=== PATIENT | female | born 1995 | race Hispanic/Latino ===

== ENCOUNTER 2020-09-09 15:36 | Emergency (ER) | payer SELFPAY | END 2020-09-09 16:43 | disposition left against medical advice (07) | LOC: ED 15:36 | DX: R10.9 Unspecified abdominal pain (principal); Z53.21 Procedure and treatment not carried out due to patient leaving prior to being seen by health care provider ==

== ENCOUNTER 2020-09-10 09:14 | Observation (INO) | payer OTHER ==
[2020-09-10 03:10] LABS: Basophils # (Auto) 0.1 K/mm3 (0.0-0.1); Basophils % (Auto) 0.4 % (0.0-1.8); Eosinophils % (Auto) 0.1 % (0.0-4.3); Hematocrit 36.5 % (30.3-42.9); Hemoglobin 12.3 gm/dl (10.1-14.3); Lymphocytes # (Auto) 1.6 K/mm3 (1.2-5.4); Lymphocytes % (Auto) 8.3 % (13.4-35.0); Mean Corpuscular HGB Conc 34 % (30-34); Mean Corpuscular Volume 84 fl (79-97); Monocytes # (Auto) 1.5 K/mm3 (0.0-0.8); Monocytes % (Auto) 7.9 % (0.0-7.3); Platelet Count 248 K/mm3 (140-440); Red Blood Count 4.34 M/mm3 (3.65-5.03); Red Cell Distribution Width 14.1 % (13.2-15.2)
[2020-09-10 03:17] LABS: Bilirubin,Urine NEG (Negative); Blood,Urine NEG (Negative); Color,Urine Yellow (Yellow); Mucus,Urine 2+ /HPF; Urobilinogen,Urine < 2.0 mg/dL (<2.0)
--- NOTE | 2020-09-10 03:23 | Emergency Department Report ---
ED General Adult HPI - General Chief complaint: Abdominal Pain Stated complaint: ABD PAIN/CRAMPING PUI?: No Time Seen by Provider: 09/10/20 03:09 Source: patient, RN notes reviewed Mode of arrival: Ambulatory Limitations: Physical Limitation - History of Present Illness Initial comments: The patient was evaluated in the emergency department for symptoms described in the history of present illness. He/she was evaluated in the context of the global COVID-19 pandemic, which necessitated consideration that the patient might be at risk for infection with the virus that causes COVID-19. Institutional protocols and algorithms that pertain to the evaluation of patients at risk for COVID-19 are in a state of rapid change based on information released by regulatory bodies including the CDC and federal and state organizations. These policies and algorithms were followed during the patient's care in the emergency department. Please note that these policies, procedures and recommendations changed on a rapid basis. During the history and physical examination, I am chaperoned by Andria Villalba Patient is a 25-year-old female. She is not known to myself previously. 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 She denies chronic medical conditions. She presents to the ER today with complaint of diffuse sharp throbbing cramping abdominal pain, present for the past day to day and a half. It is all over, and only decreases when she leans forward. When she straightens out and lays flat, it increases her pain. She also complains of bilateral trapezius and posterior thorax pain. She denies headache, midline neck pain, chest pain, exertional shortness of breath, vomiting, she does endorse dysuria. No loss of taste or smell. No history of STDs. She is never had pain like this before. No history of ovarian cyst that she is aware of. -: Gradual, hour(s), days(s) Location: back, abdomen Radiation: non-radiation Quality: stabbing, aching, sharp Consistency: constant Improves with: rest, other Worsens with: movement - Related Data Allergies Allergy/AdvReac Type Severity Reaction Status Date / Time No Known Allergies Allergy Verified 09/10/20 04:43 ED Review of Systems ROS: Stated complaint: ABD PAIN/CRAMPING Other details as noted in HPI Constitutional: denies: fever, weakness Eyes: denies: eye discharge ENT: denies: epistaxis Respiratory: denies: cough Cardiovascular: denies: chest pain Gastrointestinal: abdominal pain Genitourinary: dysuria Musculoskeletal: back pain, myalgia Neurological: denies: weakness Psychiatric: anxiety Hematological/Lymphatic: denies: easy bleeding ED Past Medical Hx - Past Medical History Previous Medical History?: Yes Hx Kidney Stones: Yes - Surgical History Past Surgical History?: No - Social History Smoking Status: Never Smoker Substance Use Type: None ED Physical Exam - General Limitations: Physical Limitation General appearance: alert, anxious, in distress - Head Head exam: Present: atraumatic, normocephalic - Eye Eye exam: Present: normal appearance, EOMI. Absent: nystagmus - ENT ENT exam: Present: normal exam, normal orophraynx, mucous membranes moist, normal external ear exam - Neck Neck exam: Present: normal inspection, full ROM. Absent: tenderness, m eningismus - Respiratory Respiratory exam: Present: normal lung sounds bilaterally. Absent: respiratory distress, rales, rhonchi, stridor, decreased breath sounds - Cardiovascular Cardiovascular Exam: Present: normal rhythm, tachycardia. Absent: systolic murmur, diastolic murmur, rubs, gallop - GI/Abdominal GI/Abdominal exam: Present: tenderness, guarding, rebound. Absent: distended, pulsatile mass - Extremities Exam Extremities exam: Present: normal inspection, full ROM, other (2+ pulses noted in the bilateral upper and lower extremities. There is no palpable cord. negative Homans sign. Muscular compartments are soft. The pelvis is stable.). Absent: pedal edema, calf tenderness - Back Exam Back exam: Present: normal inspection, full ROM. Absent: tenderness, CVA tenderness (R), CVA tenderness (L), paraspinal tenderness, vertebral tenderness - Neurological Exam Neurological exam: Present: alert, other (No facial droop. Tongue midline. Extraocular movements intact bilaterally. Facial sensation intact to light touch in V1, V2, V3 distribution bilaterally. 5 and a 5 strength in 4 extremities. Sensation intact to light touch in 4 extremities.). Absent: motor sensory deficit - Psychiatric Psychiatric exam: Present: anxious - Skin Skin exam: Present: warm, dry, intact, normal color. Absent: rash ED Course Vital Signs 09/10/20 02:33 Temperature 98.2 F Pulse Rate 100 H Respiratory 16 Rate Blood Pressure 123/95 O2 Sat by Pulse 98 Oximetry - Reevaluation(s) Reevaluation #1: 09/10/20 05:21 Patient states that she feels improved. Resting comfortably. Awaiting gynecologic consultation at this time. ED Medical Decision Making - Lab Data Result diagrams: 09/10/20 02:53 09/10/20 02:53 Vital Signs 09/10/20 02:33 Temperature 98.2 F Pulse Rate 100 H Respiratory 16 Rate Blood Pressure 123/95 O2 Sat by Pulse 98 Oximetry Lab Results 09/10/20 09/10/20 09/10/20 Range/Units 02:52 02:53 02:53 WBC 18.8 H (4.5-11.0) K/mm3 RBC 4.34 (3.65-5.03) M/mm3 Hgb 12.3 (10.1-14.3) gm/dl Hct 36.5 (30.3-42.9) % MCV 84 (79-97) fl MCH 28 (28-32) pg MCHC 34 (30-34) % RDW 14.1 (13.2-15.2) % Plt Count 248 (140-440) K/mm3 Lymph % (Auto) 8.3 L (13.4-35.0) % [place] % (Auto) 7.9 H (0.0-7.3) % Eos % (Auto) 0.1 (0.0-4.3) % Baso % (Auto) 0.4 (0.0-1.8) % Lymph # (Auto) 1.6 (1.2-5.4) K/mm3 [place] # (Auto) 1.5 H (0.0-0.8) K/mm3 Eos # (Auto) 0.0 (0.0-0.4) K/mm3 Baso # (Auto) 0.1 (0.0-0.1) K/mm3 Seg Neutrophils % 83.3 H (40.0-70.0) % Seg Neutrophils # 15.7 H (1.8-7.7) K/mm3 Sodium 137 (137-145) mmol/L Potassium 4.2 (3.6-5.0) mmol/L Chloride 101.7 (98-107) mmol/L Carbon Dioxide 22 (22-30) mmol/L Anion Gap 18 mmol/L BUN 9 (7-17) mg/dL Creatinine 0.9 (0.6-1.2) mg/dL Estimated GFR > 60 ml/min BUN/Creatinine Ratio 10 % Glucose 127 H (65-100) mg/dL Calcium 9.7 (8.4-10.2) mg/dL Magnesium (1.7-2.3) mg/dL Total Bilirubin 0.80 (0.1-1.2) mg/dL AST 12 (5-40) units/L ALT 7 (7-56) units/L Alkaline Phosphatase 55 (35-129) units/L Total Creatine Kinase (30-135) units/L Total Protein 7.1 (6.3-8.2) g/dL Albumin 4.5 (3.9-5) g/dL Albumin/Globulin Ratio 1.7 % Lipase 14 (13-60) units/L HCG, Qual (Negative) Urine Color Yellow (Yellow) Urine Turbidity Slightly-cloudy (Clear) Urine pH 6.0 (5.0-7.0) Ur Specific [place] 1.014 (1.003-1.030) Urine Protein 100 mg/dl (Negative) mg/dL Urine Glucose (UA) Neg (Negative) mg/dL Urine Ketones Neg (Negative) mg/dL Urine Blood Neg (Negative) Urine Nitrite Neg (Negative) Urine Bilirubin Neg (Negative) Urine Urobilinogen < 2.0 (<2.0) mg/dL Ur Leukocyte Esterase Neg (Negative) Urine WBC (Auto) 3.0 (0.0-6.0) /HPF Urine RBC (Auto) 3.0 (0.0-6.0) /HPF U Epithel Cells (Auto) 17.0 H (0-13.0) /HPF Urine Mucus 2+ /HPF 09/10/20 09/10/20 Range/Units 02:53 Unknown WBC (4.5-11.0) K/mm3 RBC (3.65-5.03) M/mm3 Hgb (10.1-14.3) gm/dl Hct (30.3-42.9) % MCV (79-97) fl MCH (28-32) pg MCHC (30-34) % RDW (13.2-15.2) % Plt Count (140-440) K/mm3 Lymph % (Auto) (13.4-35.0) % [place] % (Auto) (0.0-7.3) % Eos % (Auto) (0.0-4.3) % Baso % (Auto) (0.0-1.8) % Lymph # (Auto) (1.2-5.4) K/mm3 [place] # (Auto) (0.0-0.8) K/mm3 Eos # (Auto) (0.0-0.4) K/mm3 Baso # (Auto) (0.0-0.1) K/mm3 Seg Neutrophils % (40.0-70.0) % Seg Neutrophils # (1.8-7.7) K/mm3 Sodium (137-145) mmol/L Potassium (3.6-5.0) mmol/L Chloride (98-107) mmol/L Carbon Dioxide (22-30) mmol/L Anion Gap mmol/L BUN (7-17) mg/dL Creatinine (0.6-1.2) mg/dL Estimated GFR ml/min BUN/Creatinine Ratio % Glucose (65-100) mg/dL Calcium (8.4-10.2) mg/dL Magnesium 1.90 (1.7-2.3) mg/dL Total Bilirubin (0.1-1.2) mg/dL AST (5-40) units/L ALT (7-56) units/L Alkaline Phosphatase (35-129) units/L Total Creatine Kinase 138 H (30-135) units/L Total Protein (6.3-8.2) g/dL Albumin (3.9-5) g/dL Albumin/Globulin Ratio % Lipase (13-60) units/L HCG, Qual Negative (Negative) Urine Color (Yellow) Urine Turbidity (Clear) Urine pH (5.0-7.0) Ur Specific [place] (1.003-1.030) Urine Protein (Negative) mg/dL Urine Glucose (UA) (Negative) mg/dL Urine Ketones (Negative) mg/dL Urine Blood (Negative) Urine Nitrite (Negative) Urine Bilirubin (Negative) Urine Urobilinogen (<2.0) mg/dL Ur Leukocyte Esterase (Negative) Urine WBC (Auto) (0.0-6.0) /HPF Urine RBC (Auto) (0.0-6.0) /HPF U Epithel Cells (Auto) (0-13.0) /HPF Urine Mucus /HPF - Radiology Data Radiology results: report reviewed, image reviewed XR chest 1V ap INDICATION / CLINICAL INFORMATION: weak, upper back pain n/v COMPARISON: None available. FINDINGS: SUPPORT DEVICES: None. HEART / MEDIASTINUM: No significant abnormality. LUNGS / PLEURA: Lungs are clear. Costophrenic sulci are sharp. No pneumothorax. ADDITIONAL FINDINGS: No significant additional findings. IMPRESSION: 1. No acute findings. Signer Name: Erickson Paige MD Signed: 09/10/2020 2:56 AM Workstation Name: [facility] CT abdomen pelvis w con INDICATION: Patient complains of "Generalized" abdominal pain with nausea and vomiting x 2 days. COMPARISON: None TECHNIQUE: Abdominal and pelvic CT exam performed. All CT scans at this location are p erformed using CT dose reduction for ALARA by means of automated exposure control. FINDINGS: CT ABDOMEN and PELVIS: Lung Bases: No significant abnormality. Liver: No significant abnormality. Biliary: No significant abnormality. Spleen: No significant abnormality. Pancreas: No significant abnormality. Adrenals: No significant abnormality. Kidneys: No significant abnormality. Lymphatics: No lymphadenopathy. Vasculature: No significant abnormality. Bowel: No significant abnormality. Pelvis: Very large quantity of hemoperitoneum is seen within the pelvis which extends caudally into the upper quadrant around the spleen and liver. There is a peripherally enhancing right corpus luteal cyst. There are nodular foci of enhancement seen in the right adnexa which becomes slightly more diffuse on delayed imaging, images 126 of series 2 and 99 of series 5. Osseous Structures: No aggressive osseous lesion. No fractures. Additional Findings: None IMPRESSION: 1. Large quantity of hemoperitoneum most consistent with a ruptured right corpus luteal cyst with findings of active extravasation in the right adnexa. Signer Name: Erickson Paige MD Signed: 09/10/2020 3:23 AM Workstation Name: [email or web address] I informed Dr. Gomez of these findings at the completion of the study. - Medical Decision Making Differential diagnosis, including but not limited to: Pyelonephritis, append icitis, colitis, diverticulitis, perforated viscus, pelvic inflammatory disease, hemoperitoneum Assessment and plan: 25-year-old female with diffuse abdominal pain, tenderness and peritoneal signs, CT scan of the abdomen and pelvis demonstrates hemoperitoneum, with active extravasation from right adnexa. Have emergently requested gynecologic consultation from Dr. Starla Turcios. Have discussed the patient's history, physical, pertinent laboratory studies and imaging findings. She states that she is on the way to the emergency room to evaluate the patient. Have discussed the case with general surgeon on-call, Dr. Mani Baird, have discussed the history, physical, pertinent laboratory studies and imaging findings. She is available for Intra-Op consultation, should the gynecology team request for services. Place 2 large-bore IVs, treat pain aggressively, initiate IV fluid resuscitation, obtain type and screen, administer empiric antibiotics. Have discussed this plan of care with the patient, who verbalized understanding, and was amenable to this plan of care. Given the CT scan findings, it is my opinion that pelvic inflammatory disease, and pyelonephritis are very unlikely at this time. Critical Care Time: Yes Critical care time in (mins) excluding proc time.: 45 Critical care attestation.: If time is entered above; I have spent that time in minutes in the direct care of this critically ill patient, excluding procedure time. ED Disposition Clinical Impression: Peritonitis, Hemoperitoneum Disposition: OP ADMIT IP TO THIS HOSP Is pt being admited?: Yes Does the pt Need Aspirin: No Condition: Serious Instructions: Abdominal Pain (ED) Referrals: AMBER RATLIFF MD [Primary Care Provider] - 3-5 Days
[2020-09-10 03:25] LABS: Alanine Aminotransferase 7 units/L (7-56); Albumin 4.5 g/dL (3.9-5); BUN/Creatinine Ratio 10; Blood Urea Nitrogen 9 mg/dL (7-17); Calcium 9.7 mg/dL (8.4-10.2); Hemolysis Index 6
--- NOTE | 2020-09-10 04:00 | XRay Report ---
XR chest 1V ap INDICATION / CLINICAL INFORMATION: weak, upper back pain n/v COMPARISON: None available. FINDINGS: SUPPORT DEVICES: None. HEART / MEDIASTINUM: No significant abnormality. LUNGS / PLEURA: Lungs are clear. Costophrenic sulci are sharp. No pneumothorax. ADDITIONAL FINDINGS: No significant additional findings. IMPRESSION: 1. No acute findings. Signer Name: Erickson Paige MD Signed: 09/10/2020 3:56 AM Workstation Name: [id number]
--- NOTE | 2020-09-10 04:28 | Cat Scan Report ---
CT abdomen pelvis w con INDICATION: Patient complains of "Generalized" abdominal pain with nausea and vomiting x 2 days. COMPARISON: None TECHNIQUE: Abdominal and pelvic CT exam performed. All CT scans at this location are performed using CT dose reduction for ALARA by means of automated exposure control. FINDINGS: CT ABDOMEN and PELVIS: Lung Bases: No significant abnormality. Liver: No significant abnormality. Biliary: No significant abnormality. Spleen: No significant abnormality. Pancreas: No significant abnormality. Adrenals: No significant abnormality. Kidneys: No significant abnormality. Lymphatics: No lymphadenopathy. Vasculature: No significant abnormality. Bowel: No significant abnormality. Pelvis: Very large quantity of hemoperitoneum is seen within the pelvis which extends caudally into t he upper quadrant around the spleen and liver. There is a peripherally enhancing right corpus luteal cyst. There are nodular foci of enhancement seen in the right adnexa which becomes slightly more diff use on delayed imaging, images 126 of series 2 and 99 of series 5. Osseous Structures: No aggressive osseous lesion. No fractures. Additional Findings: None IMPRESSION: 1. Large quantity of hemoperitoneum most consistent with a ruptured right corpus luteal cyst with fin dings of active extravasation in the right adnexa. Signer Name: Erickson Paige MD Signed: 09/10/2020 4:23 AM Workstation Name: [id number] I informed Dr. Gomez of these findings at the completion of the study.
[2020-09-10 05:09] LABS: INR 1.07 (0.87-1.13)
--- NOTE | 2020-09-10 06:36 | History and Physical Report ---
History of Present Illness Date of examination: 09/10/20 Chief complaint: abdominal pain, pelvic pain, suspected ruptured ovarian cyst History of present illness: Pt is a 25 year old nulligravida LMP 08/21/20 who presents with two days of severe pelvic and abdominal pain, and persistent nausea and vomiting. She has been unable to lie flat or to sleep since these symptoms started. After pre sentation to the ED, her evaluation revealed a negative test and a CT scan of the pelvis revealed hemoperitoneum extending caudally to the upper quadrant around the spleen and liver with a peripherally enhancing right corpus luteal cyst with findings of active extravasation in the right adnexa. She also notes that over the last four hours, she has developed bilateral shoulder pain. The patient is from [place] and has been in [place] for 5 months with her boyfriend Bright Hernandez. She has not had any gynecologic care since her move, but reports having a normal pap smear in the last two years. She denies any fever or abnormal discharge, but does report dyspareunia over the past two weeks. Past History Past Medical History: kidney stones (2016) Past Surgical History: no surgical history Social history: no significant social history - Obstetrical History : 0 Medications and Allergies Allergies Allergy/AdvReac Type Severity Reaction Status Date / Time No Known Allergies Allergy Verified 09/10/20 04:43 Review of Systems All systems: negative Gastrointestinal: nausea, vomiting - Vital Signs Vital signs: Vital Signs Temp Pulse Resp BP Pulse Ox 98.2 F 100 H 16 123/95 98 09/10/20 02:33 09/10/20 02:33 09/10/20 02:33 09/10/20 02:33 09/10/20 02:33 Temp Pulse Resp BP Pulse Ox 98.2 F 100 H 16 123/95 98 09/10/20 02:33 09/10/20 02:33 09/10/20 02:33 09/10/20 02:33 09/10/20 02:33 - Physical Exam Breasts: Positive: deferred Abdomen: Positive: tenderness, guarding Extremities: Positive: normal Results Result Diagrams: 09/10/20 02:53 09/10/20 02:53 Abnormal lab results 09/10/20 09/10/20 09/10/20 Range/Units 02:52 02:53 02:53 WBC 18.8 H (4.5-11.0) K/mm3 Lymph % (Auto) 8.3 L (13.4-35.0) % [place] % (Auto) 7.9 H (0.0-7.3) % [place] # (Auto) 1.5 H (0.0-0.8) K/mm3 Seg Neutrophils % 83.3 H (40.0-70.0) % Seg Neutrophils # 15.7 H (1.8-7.7) K/mm3 Glucose 127 H (65-100) mg/dL Lactic Acid (0.7-2.0) mmol/L Total Creatine Kinase (30-135) units/L U Epithel Cells (Auto) 17.0 H (0-13.0) /HPF 09/10/20 09/10/20 Range/Units 04:40 Unknown WBC (4.5-11.0) K/mm3 Lymph % (Auto) (13.4-35.0) % [place] % (Auto) (0.0-7.3) % [place] # (Auto) (0.0-0.8) K/mm3 Seg Neutrophils % (40.0-70.0) % Seg Neutrophils # (1.8-7.7) K/mm3 Glucose (65-100) mg/dL Lactic Acid 2.20 H* (0.7-2.0) mmol/L Total Creatine Kinase 138 H (30-135) units/L U Epithel Cells (Auto) (0-13.0) /HPF All other labs normal. Assessment and Plan A: Abdominal Pain Hemoperitoneum with referred shoulder pain Suspected ruptured right ovarian cyst with evidence of active bleeding on CT scan P: Proceed with laparoscopy, evacuation of hemoperitoneum, possible right oophorectomy and other indicated procedures Consent signed and on the chart Cow Tester notified, surgical team to be called in Closely monitor clinical status Pt asks that boyfriend Bright Hernandez be updated postoperatively (Contact # [phone])
--- NOTE | 2020-09-10 07:42 | Anesthesia Consultation ---
Anesthesia Consult and Med Hx Date of service: 09/10/20 - Airway Anesthetic Teeth Evaluation: Good ROM Head & Neck: Adequate Mental/Hyoid Distance: Adequate Mallampati Class: Class I Intubation Access Assessment: Good - Pre-Operative Health Status ASA Pre-Surgery Classification: ASA1, Emergency Proposed Anesthetic Plan: General - Endocrine Hx Renal Disease: Yes (h/o kidney stones) - Additional Comments Anesthesia Medical History Comments: ovarian cyst rupture, hemoperitoneum
--- NOTE | 2020-09-10 07:42 | Anesthesia Day of Surgery ---
Anesthesia Day of Surgery - Day of Surgery Patient Examined: Yes Patient H&P Reviewed: Yes Patient is NPO: Yes
[~2020-09-10 09:14] MED LIST: BUPIVACAINE/PF (0.5%) 5 MG/1 ML 30 ML VIAL INFILTRATI ONE; CITRIC ACID-SOD CITRATE 500 ML IV ONE; GLYCOPYRROLATE 0.4 MG/2 ML INJ ONE; LACTATED RINGERS 1,000 ML IV ONE; LIDOCAINE MPF (2%) 20 MG/1 ML VIAL 5 ML ONE; MIDAZOLAM 5 MG/5 ML INJ MDV IV ONE; MORPHINE 4 MG/1 ML INJ IV ONE; NEOSTIGMINE 10MG/10 ML INJ MDV ONE; ONDANSETRON 4 MG/2 ML INJ IV ONE; ONDANSETRON 4 MG/2 ML INJ IV PRN; ONDANSETRON 4 MG/2 ML INJ ONE; PHENYLEPHRINE/NS 1,000 MCG/10 ML SYRINGE (OR USE) IV ONE; PIPERACIL/TAZOBACTA 4.5/NS 100 4.5 GM/100 ML VIAL IV ONE; ROCURONIUM 50 MG/5 ML INJ IV ONE; SODIUM CHLORIDE 0.9% 1000 ML 1,000 ML IV ONE; SUCCINYLCHOLINE CHLORIDE 200 MG/10 ML INJ MDV ONE; ceFAZolin/Water 2 GM/20 ML 2 GM/20 ML SYRINGE IV NR; dexAMETHasone 20 MG/5 ML VIAL ONE; fentaNYL 100 MCG/2 ML INJ ONE; propofoL 200 MG/20 ML VIAL IV ONE
--- NOTE | 2020-09-10 09:27 | Event Note ---
Date: 09/10/20 Called this morning about this patient with hemoperitoneum suspected to be of right adnexal pathology. No definitive general surgical concerns at this time. Pt has been seen by gynecology who is taking patient to surgery this am. If intra-op something is encountered that needs general surgery consultation I will be available. Thank you
[2020-09-10] MEDS ORDERED: HYDROmorphone 1 MG/1 ML INJ ONE (09:43)
[2020-09-10] MEDS ORDERED: BUPIVACAINE/PF (0.5%) 5 MG/1 ML 30 ML VIAL INFILTRATI ONE (10:44)
[2020-09-10] MEDS ORDERED: SODIUM CHLORIDE 0.9% IRR 1,500 ML BOTTLE IR ONE (10:44)
--- NOTE | 2020-09-10 11:04 | Post Operative Note ---
Date of procedure: 09/10/20 Pre-op diagnosis: Abdominal Pain, Hemoperitoneum, Ruptured right ovarian cyst Post-op diagnosis: same Findings: 1) Pelvis full of consolidated blood clot initially obscuring visualization of pelvic organs 2) No active bleeding from right adnexa Procedure: 1) Laparoscopy 2) Evacuation of Hemoperitoneum Anesthesia: DEVON Surgeon: BONNY GALEANA Cosmetology Instructor: DION JACKSON Estimated blood loss: other (850 mL) Pathology: list (blood clot to pathology) Specimen disposition: to lab Condition: stable Disposition: PACU
--- NOTE | 2020-09-10 11:05 | Operative Report ---
Operative Report Operative Report: Date of procedure: September 10, 2020 Preoperative diagnosis: 1) Abdominal Pain 2) Hemoperitineum Postoperative diagnosis: Same Procedure: Laparoscopic Evacuation of hemoperitoneum Surgeon: Starla Turcios M.D. Financial Assistance Advisor: Chloe Mitchell MD Anesthesia: General endotracheal anesthesia Findings: 1) Small anteverted uterus 2) Hemoperitoneum and consolidated blood clot visible upon abdominal entry 3) No active bleeding of the right ovary Estimated blood loss: 850 mL Cell Saver: 450 mL Urine output: 200 mL clear at the end of the procedure Specimens: Blood clot to pathology Complications: None. Counts correct 2 Disposition: Stable to PACU Indications for procedure: Pt is a 25 year old female nulligravida who presents with sever abdominal pain and evidence of hemoperitoneum and a ruptured right ovarian cyst with extravasation of contrast on CT scan. The patient elects for surgical evaluation. Operation in detail: After the risks, benefits, alternatives and complications of the procedure were explained to the patient, she gave informed consent for the procedure. She was subsequently taken to the operating room with her IV noted to be running and placed in the dorsal supine position with sequential compression devices functioning. General endotracheal anesthesia was then induced without difficulty. The patient was then placed in dorsal lithotomy position and prepped and draped in normal sterile fashion. A timeout was then performed. An exam under anesthesia was then performed yielding a small anteverted uterus. A jensen catheter was then placed. An open sided speculum was placed into the vagina for visualization of the cervix. The uterus was gently sounded to 7 cm. A uterine manipulator was then placed. The speculum was then removed from the vagina. The surgeon's gloves were then changed. Attention was then turned to entry into the abdominal cavity. A 5 mm incision was made in the inferior edge of the umbilicus with an 11 blade. The skin was grasped on either side of the umbilicus with towel clamps and tented up. The Veres needle was placed into the peritoneal cavity, confirmed with a saline drop test. The abdomen was then insufflated with CO2 gas to a pressure of 15 mmHg. A 5 mm Visiport trocar was then placed. An anatomic survey was then performed with findings as indicated above of hemoperitoneum. A second trocar site was created 4 cm superior to the pubic symphysis in the midline measuring 10 mm. A 10 mm trocar was placed under direct visualization. The patient was placed in Trendelenburg position. Using a 10 mm suction device, the pelvis was copiously irrigated to visualize the pelvic organs. A sample of blood clot was sent to pathology. The right ovary was inspected and no active bleeding was noted. Cristopher AH was placed on the right ovary. Hemostasis was noted. At this time, all instruments were removed, the pneumoperitoneum was released and trocars were removed from the abdominal cavity atraumatically. The fascia of the 10 mm suprapubic incision was reapproximated by a two figure of eights of 0-Vicryl on a UR-6. The incisions were then infiltrated with quarter percent Marcaine. The incisions were then reapproximated with 4-0 Vicryl in a subcuticular fashion and skin glue. The uterine manipulator was removed from the vagina atraumatically. The jensen catheter was removed. At this time the procedure was ended. The patient was placed into the dorsal supine position and extubated without difficulty. She tolerated the procedure well and was subsequently taken to the PACU in stable condition. All instrument, needle and lap counts were correct 2.
[2020-09-10] MEDS: HYDROmorphone 1 MG/1 ML INJ IV PRN ×2 (12:00→12:10)
[2020-09-10] MEDS ORDERED: ONDANSETRON 4 MG/2 ML INJ IV PRN (12:58)
[2020-09-10] MEDS ORDERED: ACETAMINOPHEN 325 MG TAB PO PRN (12:58)
[2020-09-10] MEDS ORDERED: NALOXONE 0.4 MG/1 ML INJ IV PRN (12:58)
[2020-09-10] MEDS: MORPHINE 2 MG/1 ML INJ IV PRN ×2 (14:24→20:36)
--- NOTE | 2020-09-10 14:27 | Post Anesthesia Evaluation ---
- Post Anesthesia Evaluation Patient Participated: Yes Airway Patent: Yes Stable Respiratory Function: Yes Nausea/Vomiting: No Temp > 96.8F: Yes Pain Manageable: Yes Adequeate Hydration: Yes Anesthesia Complications: No
[2020-09-10] MEDS: ceFAZolin/NS 1 GM/50 ML 1 GM/50 ML BAG IV SCH ×2 (15:48→23:33)
[2020-09-10] MEDS ORDERED: D5W/LACTATED RINGERS 1,000 ML IV SCH (16:00)
[2020-09-10] MEDS: oxyCODONE /ACETAMINOPHEN 5-325MG TAB PO PRN (17:35)
[2020-09-10 21:25] LABS: Basophils % (Auto) 0.1 % (0.0-1.8); Hematocrit 29.3 % (30.3-42.9); Hemoglobin 9.9 gm/dl (10.1-14.3); Lymphocytes # (Auto) 0.7 K/mm3 (1.2-5.4); Lymphocytes % (Auto) 5.1 % (13.4-35.0); Mean Corpuscular HGB Conc 34 % (30-34); Mean Corpuscular Volume 85 fl (79-97); Monocytes # (Auto) 0.9 K/mm3 (0.0-0.8); Monocytes % (Auto) 7.2 % (0.0-7.3); Platelet Count 143 K/mm3 (140-440); Red Blood Count 3.46 M/mm3 (3.65-5.03)
[2020-09-10] MEDS: IBUPROFEN 800 MG TAB PO PRN (23:37)
[2020-09-11] MEDS: oxyCODONE /ACETAMINOPHEN 5-325MG TAB PO PRN ×2 (01:03→07:55)
[2020-09-11] MEDS: IBUPROFEN 800 MG TAB PO PRN (05:38)
--- NOTE | 2020-09-11 08:32 | Progress Note ---
Assessment and Plan A: POD #1 s/p laparoscopy and evacuation of hemoperitoneum secondary to ruptured ovarian cyst Acute Blood Loss Anemia P: Routine post operative care Discharge today with follow up in office in 2 wks. Subjective - Subjective Date of service: 09/11/20 Principal diagnosis: s/p laparoscopy, evacauation of hemoperitoneum Interval history: Pt feeling much better this morning. Tolerating diet. Ambulating. Voiding. She is asking to go home. Patient reports: appetite normal, voiding normally, pain well controlled, ambulating normally Objective - Vital Signs Latest vital signs: Vital Signs Temp Pulse Resp BP BP Pulse Ox 09/11/20 05:52 97.9 F 91 H 16 96/51 99 09/11/20 00:51 98.6 F 73 14 104/70 99 09/10/20 21:17 98.1 F 111 H 18 100/57 98 09/10/20 16:34 98.6 F 75 18 103/56 98 09/10/20 12:49 98.6 F 81 18 113/59 95 09/10/20 12:30 82 19 110/64 95 09/10/20 12:15 68 18 111/67 95 09/10/20 12:10 20 09/10/20 12:00 98.9 F 65 20 115/71 96 09/10/20 11:45 68 22 122/79 96 09/10/20 11:30 63 17 121/75 96 09/10/20 11:25 61 20 120/75 99 09/10/20 11:20 64 19 121/79 100 09/10/20 11:15 75 18 117/81 100 09/10/20 11:10 80 20 125/80 100 09/10/20 11:06 98.2 F 84 15 128/68 100 09/10/20 08:40 120/77 98 09/10/20 08:30 15 120/77 98 Intake and Output 09/10/20 09/11/20 09/11/20 22:59 06:59 14:59 Intake Total 50 Output Total 750 400 400 Balance -700 -400 -400 Intake: IV 50 ANCEF/NS 1 GM/50 ML 1 gm 50 In 50 ml @ 100 mls/hr IV Q8H [facility] Rx#:[id number] Output: Urine 750 400 400 Void 750 400 400 Other: Total, Output Amount 300 400 400 Voiding Method Toilet Toilet - Exam Breasts: Present: deferred Abdomen: Present: soft Incision: Present: intact (with some bruising surrounding suprapubic incision ) - Labs Labs: Abnormal lab results 09/10/20 Range/Units 20:57 WBC 13.1 H (4.5-11.0) K/mm3 RBC 3.46 L (3.65-5.03) M/mm3 Hgb 9.9 L (10.1-14.3) gm/dl Hct 29.3 L D (30.3-42.9) % Lymph % (Auto) 5.1 L (13.4-35.0) % Lymph # (Auto) 0.7 L (1.2-5.4) K/mm3 [place] # (Auto) 0.9 H (0.0-0.8) K/mm3 Seg Neutrophils % 87.6 H (40.0-70.0) % Seg Neutrophils # 11.5 H (1.8-7.7) K/mm3
--- NOTE | 2020-09-11 08:37 | Discharge Summary ---
Providers - Providers Date of Admission: 09/10/20 11:08 Date of discharge: 09/11/20 Attending physician: BONNY GALEANA 09/10/20 04:23 Consult to Physician [CONS] Urgent Comment: Dr. Gomez spoke with Dr. Galeana @ 0434 Consulting Provider: BONNY GALEANA Physician Instructions: Reason For Exam: hemoperitoneum from bleeding ovary 09/10/20 04:24 Consult to Physician [CONS] Urgent Comment: Dr. Gomez spoke with Dr. Baird @ 0431 Consulting Provider: GINETTE BAIRD Physician Instructions: Reason For Exam: hemoperitoneum Primary care physician: [facility], Hospitalization Reason for admission: other (abdominal pain, nausea and vomiting ) Procedure details: Laparoscopic evacuation of hemoperitoneum Incision: intact (with skin glue ) Discharge diagnosis: other (Hemoperitoneum, Abdominal Pain ) Hospital course: Pt presented to the ED with abdominal pain, nausea and vomiting, was found to have hemoperitoneum and a ruptured right ovarian cyst with active bleeding. She underwent laparoscopic evacuation of hemoperitoneum which she tolerated well. She was observed overnight and met discharge criteria on PPD#1. Condition at discharge: Stable Disposition: DC- TO HOME OR SELFCARE - Discharge Diagnoses (1) Abdominal pain Status: Acute Qualifiers: Abdominal location: generalized Qualified Code(s): R10.84 - Generalized abdominal pain (2) Rupture of cyst of right ovary Status: Acute (3) Acute blood loss anemia Status: Acute (4) Hemoperitoneum Status: Acute Plan - Discharge Medications Prescriptions: Ferrous Sulfate [Feosol 325 MG tab] 325 mg PO BID #60 tablet Ibuprofen [Motrin 800 MG tab] 800 mg PO Q8HR PRN #30 tablet PRN Reason: Pain, Moderate (4-6) oxyCODONE /ACETAMINOPHEN [Percocet 5/325] 1 tab PO Q6HR PRN #20 tablet PRN Reason: Pain Simethicone 80 mg PO Q6H PRN #30 tab.chew PRN Reason: Gas Pain - Provider Discharge Summary Activity: routine, no sex for 6 weeks, no heavy lifting 4 weeks, no strenuous exercise Diet: routine Instructions: routine Additional instructions: [] Smoking cessation referral if applicable(refer to patient education folder for contact #) [] Refer to [facility] Booklet Call your doctor immediately for: * Fever > 100.5 * Heavy vaginal bleeding ( >1 pad per hour) * Severe persistent headache * Shortness of breath * Reddened, hot, painful area to leg or breast * Drainage or odor from incision. * Keep incision clean and dry at all times and follow doctor's instructions regarding bathing/showering - Follow up plan Follow up: AMBER RATLIFF MD [Primary Care Provider] - 3-5 Days BONNY GALEANA MD [Staff Physician] - 7 Days
[2020-09-11 09:11] VITALS: BP 130/71
== END 2020-09-11 09:15 | disposition home or self-care (01) ==
LOC: OR 09:14 → OB 11:08
PROVIDERS: ADMIT Obstetrics & Gynecology; ATTEND Obstetrics & Gynecology
DX: K66.1 Hemoperitoneum (principal); K65.9 Peritonitis, unspecified; N83.201 Unspecified ovarian cyst, right side; D62 Acute posthemorrhagic anemia; Z87.442 Personal history of urinary calculi
CPT/HCPCS: 36415; 49320; 71045; 74177; 80053; 81001; 82140; 82550; 83690; 83735; 84703; 85025; 85610; 85730; 86850; 86900; 86901; 87040; 87086; 88304; 96365; 96366; 96367; 96375; 96376; 99291; G0378; J0330; J0690; J1100; J1170; J2250; J2270; J2370; J2405; J2543; J2704; J2710; J3010; J7030; J7120; J7121; Q9967; 86920; 88305